=== PATIENT | male | born 1965 | race Caucasian/White ===

== ENCOUNTER 2022-04-24 07:52 | Emergency (ER) | payer SELFPAY ==
[2022-04-24] MEDS ORDERED: Morphine 4 MG/ML Syringe IVPUSH ONE (08:21)
[2022-04-24 08:45] LABS: CARBON DIOXIDE,CO2 26.5 mmol/L (21.0-32.0); POTASSIUM,K 4.1 mmol/L (3.5-5.1)
[2022-04-24] MEDS ORDERED: Ketorolac 30 MG/ML SDV IVPUSH ONE (09:20)
[2022-04-24] MEDS ORDERED: Iopamidol 755 Mg/ML 100 ML Bottle IVPUSH STA (11:07)
== END 2022-04-24 12:02 | disposition home or self-care (01) ==
LOC: MW.ED 07:52
DX: S29.9XXA Unspecified injury of thorax, initial encounter (principal); F17.210 Nicotine dependence, cigarettes, uncomplicated; W22.8XXA Striking against or struck by other objects, initial encounter
CPT/HCPCS: 36415; 71046; 71260; 80053; 85025; 93005; 96374; 96375; 99284; J1885; J2270; Q9967; 93010